=== PATIENT | female | born 1975 | race Caucasian/White ===

== ENCOUNTER 2016-08-27 09:01 | Day surgery (SDC) | payer BC ==
[~2016-08-27 09:01] MED LIST: Lactated Ringers 1,000 ML IV SCH; Lidocaine 1%/Sod Bicarbonate in NS 8.4% 1 ML Syringe IV PRN; Sodium Chloride 0.9% 10 ML Syringe FLUSH PRN
[2016-08-27] MEDS ORDERED: Ondansetron 4 MG/2 ML SDV ONE (09:02)
[2016-08-27] MEDS ORDERED: Lidocaine 1% 4 ML ONE (09:02)
[2016-08-27] MEDS ORDERED: Rocuronium 50 MG/5 ML Vial ONE (09:02)
[2016-08-27] MEDS ORDERED: ceFAZolin 1 GM Vial ONE (09:03)
[2016-08-27] MEDS ORDERED: fentaNYL 250 MCG/5 ML SDV ONE (09:03)
[2016-08-27] MEDS ORDERED: Midazolam 1 MG/ML 2 ML SDV ONE (09:03)
[2016-08-27] MEDS ORDERED: Propofol 200 MG/20 ML SDV ONE (09:03)
[2016-08-27] MEDS ORDERED: Scopolamine 1.5 MG Transdermal Patch TRDERM ONE (09:15)
--- NOTE | 2016-08-27 09:21 | PCM.PREANE ---
Preanesthetic Assessment - Anesthesia/Transfusion/Family Hx Anesthesia History: Prior Anesthesia Reaction Type of Anesthesia Reaction: Excessive Nausea/Vomiting Family History of Anesthesia Reaction: No Transfusion History: No Prior Transfusion(s) Intubation History: Unknown - Review of Systems General: No Symptoms Pulmonary: No Symptoms Cardiovascular: No Symptoms Gastrointestinal: No symptoms Neurological: No Symptoms Other: Reports: None - Physical Assessment NPO Status Date: 08/26/16 NPO Status Time: 23:50 Pulse: 78 O2 Sat by Pulse Oximetry: 99 Respiratory Rate: 16 Blood Pressure: 119/72 Temperature: 99.2 F Height: 5 ft 9 in Weight: 76.294 kg ASA Class: 1 Mental Status: Alert & Oriented x3 Airway Class: Mallampati = 1 Dentition: Reports: Normal Dentition Thyro-Mental Finger Breadths: 3 Mouth Opening Finger Breadths: 3 ROM/Head Extension: Full Lungs: Clear to auscultation, Normal respiratory effort Cardiovascular: Regular Rate, Regular Rhythm - Lab Values: Laboratory Last Values WBC 5.44 K/mm3 (3.98-10.04) 08/26/16 11:00 RBC 4.84 M/mm3 (3.98-5.22) 08/26/16 11:00 Hgb 14.9 gm/L (11.2-15.7) 08/26/16 11:00 Hct 44.9 % (34.1-44.9) 08/26/16 11:00 MCV 92.8 fl (79.4-94.8) 08/26/16 11:00 MCH 30.8 pg (25.6-32.2) 08/26/16 11:00 MCHC 33.2 g/dl (32.2-35.5) 08/26/16 11:00 RDW Std Deviation 42.4 fL (36.4-46.3) 08/26/16 11:00 Plt Count 189 K/mm3 (182-369) 08/26/16 11:00 MPV 11.0 fl (9.4-12.3) 08/26/16 11:00 Neut % (Auto) 63.8 % (34.0-71.1) 08/26/16 11:00 Lymph % (Auto) 28.9 % (19.3-51.7) 08/26/16 11:00 [place] % (Auto) 6.3 % (4.7-12.5) 08/26/16 11:00 Eos % (Auto) 0.6 (0.7-5.8) L 08/26/16 11:00 Baso % (Auto) 0.2 % (0.1-1.2) 08/26/16 11:00 Neut # (Auto) 3.48 K/mm3 (1.56-6.13) 08/26/16 11:00 Lymph # (Auto) 1.57 K/mm3 (1.18-3.74) 08/26/16 11:00 [place] # (Auto) 0.34 K/mm3 (0.24-0.36) 08/26/16 11:00 Eos # (Auto) 0.03 K/mm3 (0.04-0.36) L 08/26/16 11:00 Baso # (Auto) 0.01 K/mm3 (0.01-0.08) 08/26/16 11:00 Creatinine 0.8 mg/dL (0.55-1.02) 08/26/16 11:00 Est Cr Clr Drug Dosing TNP 08/26/16 11:00 Estimated GFR (MDRD) > 60 mL/min (>60) 08/26/16 11:00 HCG, Quant < 1.0 mIU/mL 08/26/16 11:00 Urine Color Light yellow (Yellow) 08/26/16 11:00 Urine Appearance Clear (Clear) 08/26/16 11:00 Urine pH 7.5 (5.0-8.0) 08/26/16 11:00 Ur Specific [place] 1.015 (1.005-1.030) 08/26/16 11:00 Urine Protein Negative (Negative) 08/26/16 11:00 Urine Glucose (UA) Negative (Negative) 08/26/16 11:00 Urine Ketones Negative (Negative) 08/26/16 11:00 Urine Occult Blood Negative (Negative) 08/26/16 11:00 Urine Nitrite Negative (Negative) 08/26/16 11:00 Urine Bilirubin Negative (Negative) 08/26/16 11:00 Urine Urobilinogen 0.2 (0.2-1.0) 08/26/16 11:00 Ur Leukocyte Esterase Negative (Negative) 08/26/16 11:00 Blood Type A POSITIVE 08/26/16 11:00 Gel Antibody Screen Negative 08/26/16 11:00 - Allergies Allergies/Adverse Reactions: Allergies Allergy/AdvReac Type Severity Reaction Status Date / Time cat dander Allergy Cannot Verified 08/26/16 15:58 Remember mold Allergy Cannot Verified 08/26/16 15:58 Remember pollen extracts Allergy Cannot Verified 08/26/16 15:58 Remember silver nitrate Allergy Cannot Verified 08/26/16 15:58 Remember dust Allergy Cannot Uncoded 08/26/16 15:58 Remember metals Allergy Cannot Uncoded 08/26/16 15:58 Remember - Blood Blood Available: Yes - Acknowledgements Anesthesia Type Planned: General Anesthesia Pt an Appropriate Candidate for the Planned Anesthesia: Yes Alternatives and Risks of Anesthesia Discussed w Pt/Guardian: Yes Pt/Guardian Understands and Agrees with Anesthesia Plan: Yes PreAnesthesia Questionnaire HEENT History: Reports: Allergic Rhinitis, Impaired Vision, Sinusitis, Other ( See Below) Other HEENT History: wears glasses, contacts Cardiovascular History: Reports: None Respiratory History: Reports: None Gastrointestinal History: Reports: Helicobacter Pylori Genitourinary History: Reports: None ADOPTION SERVICES MANAGER History: Reports: , Spontaneous , Other (See Below) Other OB/BYN History: menorrhagia, Musculoskeletal History: Reports: None Neurological History: Reports: Headaches, Chronic Psychiatric History: Reports: None Endocrine/Metabolic History: Reports: None Hematologic History: Reports: None Immunologic History: Reports: None Oncologic (Cancer) History: Reports: None Dermatologic History: Reports: Other (See Below) Other Dermatologic History: oral herpes simplex - Past Surgical History Head Surgeries/Procedures: Reports: None, Other (See Below) (wisdom teeth) HEENT Surgical History: Reports: Myringotomy w Tube(s), Other (See Below) Other HEENT Surgeries/Procedures: Right eardrum repaired Female Surgical History: Reports: D&C - SUBSTANCE USE Smoking Status *Q: Never Smoker Tobacco Use Within Last Twelve Months: No Second Hand Smoke Exposure: No Days Per Week of Alcohol Use: 0 (occasionally) Recreational Drug Use History: No - HOME MEDS Home Medications: Home Meds Cetirizine HCl/Pseudoephedrine [Cetirizine-Pse ER 5-120 mg Tab] 1 tab PO DAILY 08/26/16 [History] Cranberry 500 mg PO DAILY 08/26/16 [History] Lactobacillus Acidophilus [Probiotic] 1 cap PO DAILY 08/26/16 [History] Multivitamin [Multivitamins] 1 tab PO DAILY 08/26/16 [History] valACYclovir HCl [Valacyclovir] 1,000 mg PO ASDIRECTED PRN 08/26/16 [History] - CURRENT (IN HOUSE) MEDS Current Meds: Current Medications Lactated Ringer's (Ringers, Lactated) 1,000 mls @ 125 mls/hr IV ASDIRECTED JOSE Stop: 08/27/16 23:00 Lidocaine/Sodium Bicarbonate (Buffered Lidocaine 1% In Ns 8.4%) 0.25 ml IV ONETIME PRN PRN Reason: Prior to IV Start Stop: 08/27/16 23:00 Sodium Chloride (Saline Flush) 10 ml FLUSH ASDIRECTED PRN PRN Reason: Keep Vein Open Stop: 08/27/16 18:00 Discontinued Medications Cefazolin Sodium (Ancef) Confirm Administered Dose 2 gm .ROUTE .STK-MED ONE Stop: 08/27/16 09:04 Fentanyl (Sublimaze) Confirm Administered Dose 250 mcg .ROUTE .STK-MED ONE Stop: 08/27/16 09:04 Lidocaine HCl (Xylocaine-Mpf 1%) Confirm Administered Dose 4 mls @ as directed .ROUTE .STK-MED ONE Stop: 08/27/16 09:03 Midazolam HCl (Versed 1 Mg/Ml) Confirm Administered Dose 2 mg .ROUTE .STK-MED ONE Stop: 08/27/16 09:04 Ondansetron HCl (Zofran) Confirm Administered Dose 4 mg .ROUTE .STK-MED ONE Stop: 08/27/16 09:03 Propofol (Diprivan 20 Ml) Confirm Administered Dose 200 mg .ROUTE .STK-MED ONE Stop: 08/27/16 09:04 Rocuronium [place] (Zemuron) Confirm Administered Dose 50 mg .ROUTE .STK-MED ONE Stop: 08/27/16 09:03
[2016-08-27] MEDS ORDERED: Lidocaine 1% with EPINEPHrine 1:100,000 20 ML MDV ONE (09:23)
[2016-08-27] MEDS ORDERED: Sodium Chloride 0.9% 50 ML SDV ONE (09:23)
[2016-08-27] MEDS ORDERED: diphenhydrAMINE 50 MG/ML SDV ONE (10:00)
[2016-08-27] MEDS ORDERED: Dexamethasone 4 MG/ML SDV ONE (10:01)
[2016-08-27] MEDS ORDERED: fentaNYL 100 MCG/2 ML SDV IVPUSH PRN (10:39)
[2016-08-27] MEDS ORDERED: Ondansetron 4 MG/2 ML SDV IVPUSH PRN ×2 (10:39→11:45)
[2016-08-27] MEDS ORDERED: Lactated Ringers 1,000 ML ONE (10:57)
[2016-08-27] MEDS ORDERED: HYDROmorphone 1 MG/ML Syringe ONE (11:01)
[2016-08-27] MEDS ORDERED: Ketorolac 30 MG/ML SDV ONE (11:34)
[2016-08-27] MEDS ORDERED: Neostigmine Methylsulfate 1 MG/ML 5 ML Syringe ONE (11:35)
[2016-08-27] MEDS ORDERED: HYDROmorphone 0.5 MG/0.5 ML Syringe IVPUSH PRN (11:40)
[2016-08-27] MEDS ORDERED: Meperidine PF 50 MG/ML Syringe IVPUSH PRN (11:40)
[2016-08-27] MEDS ORDERED: Acetaminophen/oxyCODONE 325-5 MG Tab PO PRN (11:45)
--- NOTE | 2016-08-27 11:50 | PCM.OPNOTE ---
- General Post-Op/Procedure Note Date of Surgery/Procedure: 08/27/16 Operative Procedure(s): Total vaginal hysterectomy with bilateral salpingo- oophorectomy Findings: Uterus tubes and ovaries were normal in appearance and reproductive in nature. No abnormalities noted. Pre Op Diagnosis: 1. Menorrhagia. 2. Family history of uterine sarcoma and ovarian cancermother Post-Op Diagnosis: Same Anesthesia Technique: General ET tube Other Anesthesia Type: Lidocaine quarter percent with [id number] mLlocal Primary Surgeon: Mauro Chatman Secondary Surgeon: Gautam Rees Anesthesia Provider: Miguelangel Ugalde Pathology: Uterus tubes and ovaries in one specimen container Fluid Replacement, Intraop: 1,300 EBL in mLs: 200 Complications: None Condition: Good Free Text/Narrative:: Surgery duration: 52 minutes Procedure:Procedure: The patient was placed in supine position on the operating table. General endotracheal anesthesia was accomplished. After positioning, and adequate prep and drape, the patient was then operated upon. Sterile speculum was placed in the vagina and cervix was visualized. Cervix was injected with [ lidocaine quarter percent with epinephrine]. [20 cc] used. A full circumference incision was made in the cervical epithelium. The bladder was pushed well back off cervix. Posterior cul-de-sac was then entered sharply without problems. Left uterosacral was crossclamped with a LigaSure vessel closure system. The left uterosacral and then the right uterosacral ligament pedicles were developed using the LigaSure system. The anterior cul-de-sac was then entered without problems and the uterine vascular cardinal ligament and broad ligament then developed using LigaSure vessel closure system. The uterus was inverted at this time and upper broad ligament fallopian tube pedicles were crossclamped with Fili clamps. Specimen was totally removed. Both these pedicles were then cauterized with the LigaSure system. Fallopian tubes and ovaries were then visualized. There Roth somewhat high on the pelvic sidewall but accessible. Left ovary and fallopian tube were then developed using LigaSure vessel closure system and 1 Fili suture of #1 Vicryl. Same was done on the patient's right side effects of removing both ovaries and fallopian tubes per patient desire. At this point hemostasis was confirmed, sponge, instrument and needle counts were correct. A pursestring suture was and placed in the peritoneal cavity externalized and pedicles case of bleeding. Vaginal cuff was closed with running lock suture of 0 Monocryl. Patient was returned to supine position and awakened from general endotracheal anesthesia. She tolerated the procedure was then left the operating room in satisfactory condition.
--- NOTE | 2016-08-27 11:50 | PCM.POSTAN ---
POST ANESTHESIA ASSESSMENT - MENTAL STATUS Mental Status: oriented, somnolent - VITAL SIGNS Pulse Rate: 61 SaO2: 98 Resp Rate: 14 Blood Pressure: 112/57 Temperature: 99 F - RESPIRATORY Respiratory Status: respiratory rate WNL, airway patent, O2 saturation stable, supplemental oxygen - CARDIOVASCULAR CV Status: pulse rate WNL, blood pressure stable - GASTROINTESTINAL GI Status: no symptoms - PAIN Pain Score: 2 - POST OP HYDRATION Hydration Status: adequate & stable
[2016-08-27 15:09] VITALS: BP 121/63
--- NOTE | 2016-08-27 15:33 | PCM48HPAN ---
Post Anesthesia Note - EVALUATION WITHIN 48HRS OF ANESTHETIC Vital Signs in Normal Range: Yes Patient Participated in Evaluation: Yes Respiratory Function Stable: Yes Airway Patent: Yes Cardiovascular Function Stable: Yes Hydration Status Stable: Yes Pain Control Satisfactory: Yes Nausea and Vomiting Control Satisfactory: Yes Mental Status Recovered: Yes
== END 2016-08-27 15:37 | disposition home or self-care (01) ==
LOC: JD.SDS 09:01
PROVIDERS: ATTEND Obstetrics & Gynecology
DX: N72 Inflammatory disease of cervix uteri (principal); N87.9 Dysplasia of cervix uteri, unspecified; F41.9 Anxiety disorder, unspecified; G43.829 Menstrual migraine, not intractable, without status migrainosus; Z80.49 Family history of malignant neoplasm of other genital organs; Z80.41 Family history of malignant neoplasm of ovary; Z91.048 Other nonmedicinal substance allergy status; Z79.899 Other long term (current) drug therapy; Z98.890 Other specified postprocedural states
CPT/HCPCS: 36415; 58262; 81003; 82565; 84702; 85025; 86850; 86900; 86901; 88307; A9270; J0690; J1100; J1170; J1200; J1885; J2250; J2405; J2710; J3010; J7120; 00944; J2704